=== PATIENT | male | born 1990 | race Caucasian/White ===

== ENCOUNTER 2022-06-26 14:44 | Day surgery (SDC) | payer MEDICAID ==
[2022-06-26] VITALS (10 sets, daily range): BP systolic 99–135; BP diastolic 65–82
[~2022-06-26] VITALS: Ht 175.3 cm; Wt 81.2 kg
[~2022-06-26 14:44] MED LIST: FLUT1BLS13 INH; IPRA4AER INH; OXYC1TAB17 PO; albuterol 2.5 MG/3 ML nebule NEB ONE; ceFAZolin inj. 2,000 MG in dextrose 5%-water 100 ML IV ONE; famotidine 20mg tablet PO ONE; ringers solution, lacted 1,000 ML IV SCH
[2022-06-26] MEDS ORDERED: albuterol 2.5 MG/3 ML nebule NEB ONE ×2 (15:16→18:30)
[2022-06-26] MEDS ORDERED: meperidine/PF 25mg/ml syringe IV PRN ×3 (15:50)
[2022-06-26] MEDS ORDERED: ondansetron/PF 4mg/2ml inj IV PRN (15:50)
[2022-06-26] MEDS ORDERED: ringers solution, lacted 1,000 ML IV SCH (15:50)
[2022-06-26] MEDS ORDERED: morphine 2 MG/ML inj. syringe IV PRN (15:50)
[2022-06-26] MEDS ORDERED: proCHLORperazine 10 MG/2 ml inj IV PRN (15:50)
[2022-06-26] MEDS ORDERED: morphine 4 MG/ML inj SYRINge IV PRN (15:50)
[2022-06-26] MEDS ORDERED: MIDAZolam 1 MG/ML 5ML VIAL ONE (15:53)
[2022-06-26 15:55] LABS: BASOPHILS % (AUTO) 0.7 % (0-1); EOSINOPHILS # (AUTO) 0.5 X10'3 (0-0.9); EOSINOPHILS % (AUTO) 6.3 % (0-6); HEMATOCRIT 39.5 % (42.0-52.0); HEMOGLOBIN 13.5 g/dl (14.0-17.9); LYMPHOCYTES # (AUTO) 1.7 X10'3 (1.1-4.8); LYMPHOCYTES % (AUTO) 23.6 % (21-51); MEAN CORPUSCULAR HEMOGLOBIN 29.8 PG (27.0-31.0); MEAN CORPUSCULAR HGB CONC 34.1 g/dL (33.0-36.5); MEAN CORPUSCULAR VOLUME 87.3 FL (78-98); MEAN PLATELET VOLUME 7.7 FL (7.4-10.4); MONOCYTES # (AUTO) 0.5 X10'3 (0-0.9); MONOCYTES % (AUTO) 7.3 % (2-12); NEUTROPHILS # (AUTO) 4.6 X10'3 (1.8-7.7); NEUTROPHILS % (AUTO) 62.1 % (42-75); PLATELET COUNT 282 X10'3 (140-440); RED BLOOD COUNT 4.52 X10'6 (4.70-6.10); WHITE BLOOD COUNT 7.3 X10'3 (4.5-11.0)
[2022-06-26] MEDS ORDERED: ROPIVAcaine 0.5% (5mg/ml) 30ml vial ONE (15:55)
[2022-06-26] MEDS ORDERED: BUPIVAcaine/PF 7.5mg/ml (0.75%) 10ml vial ONE (15:55)
[2022-06-26 16:03] LABS: ALANINE AMINOTRANSFERASE 22 U/L (12-78); ALBUMIN 3.9 G/DL (3.4-5.0); ALKALINE PHOSPHATASE 125 IU/L (46-116); ANION GAP 9 (8-16); ASPARTATE AMINO TRANSFERASE 18 U/L (10-37); BILIRUBIN,TOTAL 0.5 MG/DL (0.1-1.0); BLOOD UREA NITROGEN 14 MG/DL (7-18); BUN/CREATININE RATIO 18.2 (5.4-32.0); CALCIUM 9.3 MG/DL (8.5-10.1); CHLORIDE 100 MMOL/L (99-107); CREATININE 0.77 MG/DL (0.60-1.10); GLUCOSE 90 MG/DL (70-104); SODIUM 135 MMOL/L (135-145); TOTAL CARBON DIOXIDE 26.5 MMOL/L (24-32); TOTAL PROTEIN 7.9 G/DL (6.4-8.2); eGFR > 90 ML/MIN
[2022-06-26] MEDS ORDERED: vancomycin 1,000mg inj ONE (17:10)
[2022-06-26] MEDS ORDERED: bacitracin 15gm ointment TP ONE (17:38)
[2022-06-26] MEDS ORDERED: VANCOMYCIN 1,500MG in normal saline IV soln 300 ML IV ONE (17:45)
[2022-06-26] MEDS ORDERED: propofol inj 20 ML IV ONE (17:50)
[2022-06-26] MEDS ORDERED: ondansetron/PF 4mg/2ml inj ONE (17:53)
--- NOTE | 2022-06-26 18:08 | NUR ---
Received from OR via , accompanied by Anesthesiologist ANITHA and OR NURSE report given by Anesthesiolgist. PT IS DROWSY AND CONFUSED; VERY ITCHY AND MOVING ABOUT TO RELIEVE ITCHINESS. PT ABLE TO MAINTAIN AIRWAY; DOES NEED MASK AT 10 LPM. DENIES PAIN OR DISCOMFORT. LEELA AND MACARIO INFUSING. Addendum: 06/26/22 at 1845 by Arlette Mike RN Amended: Links added.
--- NOTE | 2022-06-26 19:28 | NUR ---
ALL DISCHARGE CRITERIA HAS BEEN MET. VSS, PAIN AT A TOLERABLE LEVEL, VOIDING AND ABLE TO SAFELY AMBULATE AND TRANSFER SELF. IV TAKEN OUT WITHOUT ANY COMPLICATIONS. ALL DISCHARGE INSTRUCTIONS COVERED WITH PATIENT AND ALL QUESTIONS ANSWERED. PATIENT TAKEN OUT VIA WHEELCHAIR TO PERSONAL VEHICLE WHERE FAMILY/FRIEND DROVE PATIENT HOME. Addendum: 06/26/22 at 1948 by Arlette Mike RN Amended: Links added.
== END 2022-06-26 19:28 | disposition home or self-care (01) ==
LOC: PAS 14:44
PROVIDERS: ATTEND Podiatrist Foot & Ankle Surgery
DX: T84.629A Infection and inflammatory reaction due to internal fixation device of unspecified bone of leg, initial encounter (principal); Y83.8 Other surgical procedures as the cause of abnormal reaction of the patient, or of later complication, without mention of misadventure at the time of the procedure; Z79.899 Other long term (current) drug therapy; G89.18 Other acute postprocedural pain; Z98.890 Other specified postprocedural states
CPT/HCPCS: 10180; 20680; 36415; 64447; 64450; 73620; 76942; 80053; 82948; 85025; 87070; 87075; 87077; 87186; 94640; A6222; C1713; J0690; J2250; J2405; J2704; J2795; J3370; J3490; J7030; J7060; J7120; Z7506; Z7508; Z7512; 76000; A4618; A6253; A6449; A7000

== ENCOUNTER 2022-11-24 09:39 | Inpatient (IN) | payer MEDICAID ==
[~2022-11-24] VITALS: Ht 175.3 cm; Wt 81.8 kg
[~2022-11-24 09:39] MED LIST changes: -albuterol 2.5 MG/3 ML nebule NEB ONE; -ceFAZolin inj. 2,000 MG in dextrose 5%-water 100 ML IV ONE; -famotidine 20mg tablet PO ONE; -ringers solution, lacted 1,000 ML IV SCH
[2022-11-24 11:40] LABS: BASOPHILS % (AUTO) 0.4 % (0-1); EOSINOPHILS # (AUTO) 0.2 X10'3 (0-0.9); EOSINOPHILS % (AUTO) 3.6 % (0-6); HEMATOCRIT 40.9 % (42.0-52.0); HEMOGLOBIN 13.7 g/dl (14.0-17.9); LYMPHOCYTES # (AUTO) 0.9 X10'3 (1.1-4.8); MEAN CORPUSCULAR HEMOGLOBIN 29.5 PG (27.0-31.0); MEAN CORPUSCULAR HGB CONC 33.6 g/dL (33.0-36.5); MEAN CORPUSCULAR VOLUME 87.9 FL (78-98); MEAN PLATELET VOLUME 7.7 FL (7.4-10.4); MONOCYTES # (AUTO) 0.7 X10'3 (0-0.9); MONOCYTES % (AUTO) 11.7 % (2-12); NEUTROPHILS # (AUTO) 4.3 X10'3 (1.8-7.7); NEUTROPHILS % (AUTO) 69.3 % (42-75); PLATELET COUNT 206 X10'3 (140-440); RED BLOOD COUNT 4.65 X10'6 (4.70-6.10); RED CELL DISTRIBUTION WIDTH 14.2 % (11.5-14.5); WHITE BLOOD COUNT 6.2 X10'3 (4.5-11.0)
[2022-11-24 11:57] LABS: ALANINE AMINOTRANSFERASE 60 U/L (12-78); ALBUMIN 3.7 G/DL (3.4-5.0); ALBUMIN/GLOBULIN RATIO 0.8 (1.1-1.5); ALKALINE PHOSPHATASE 108 IU/L (46-116); ANION GAP 6 (8-16); APTT 30 SECONDS (22-32); ASPARTATE AMINO TRANSFERASE 22 U/L (10-37); BILIRUBIN,TOTAL 0.6 MG/DL (0.1-1.0); BLOOD UREA NITROGEN 11 MG/DL (7-18); BUN/CREATININE RATIO 14.7 (10.0-20.0); C-REACTIVE PROTEIN 15.81 MG/DL (0.0-0.5); CALCIUM 9.3 MG/DL (8.5-10.1); CHLORIDE 98 MMOL/L (99-107); CREATININE 0.75 MG/DL (0.60-1.10); GLUCOSE 104 MG/DL (70-104); SODIUM 135 MMOL/L (135-145); TOTAL CARBON DIOXIDE 30.8 MMOL/L (24-32); TOTAL PROTEIN 8.3 G/DL (6.4-8.2); eGFR > 90 ML/MIN
--- NOTE | 2022-11-24 15:49 | NUR ---
Pt states he has been through 4 rounds of abx, just starting on Clindamycin since 11/22/22.
[2022-11-24] MEDS ORDERED: ondansetron/PF 4mg/2ml inj IV ONE (17:15)
[2022-11-24] MEDS ORDERED: morphine 4 MG/ML inj SYRINge IV ONE (17:15)
[2022-11-24] MEDS ORDERED: morphine 4 MG/ML inj SYRINge IM ONE (17:30)
[2022-11-24] MEDS: ondansetron 4mg rapidly disintigrating tab PO ONE ×2 (17:30→18:56)
[2022-11-24] MEDS ORDERED: CefTRIAXone 2gm/D5W 50ml BAG 50 ML IV ONE (17:45)
[2022-11-24] MEDS ORDERED: vancomycin/NS 1 GM ADD-VANTAGE 250 ML IV ONE (17:45)
--- NOTE | 2022-11-24 18:58 | NUR ---
Patient requesting a non-narcotic pain medication, per Efraín ROLLINS give Toradol 15mg IV now
[2022-11-24] MEDS ORDERED: ketorolac trometh. 30mg/ml inj. IV ONE (19:00)
[2022-11-24] MEDS ORDERED: DOCU-342 PO (19:22)
[2022-11-24] MEDS ORDERED: CLIN300C71 PO (19:22)
--- NOTE | 2022-11-24 19:54 | NUR ---
Patient resting comfortably on gurney, antibiotics infusing
--- NOTE | 2022-11-24 20:24 | NUR ---
Patient with Dr. Basilio.
[2022-11-24] MEDS ORDERED: magnesium 4gm in 100ml NS 100 ML IV PRN (20:40)
[2022-11-24] MEDS ORDERED: HYDROcodone/acetaminophen 5mg/325mg tablet PO PRN (20:40)
[2022-11-24] MEDS ORDERED: magnesium hydroxide 30ml (MOM) UD suspension PO PRN (20:40)
[2022-11-24] MEDS ORDERED: ondansetron/PF 4mg/2ml inj IV PRN (20:40)
[2022-11-24] MEDS ORDERED: potassium Cl 20 mEq SR tablet PO PRN ×2 (20:40)
[2022-11-24] MEDS ORDERED: magnesium Cl slow-release 64mg tablet PO PRN (20:40)
[2022-11-24] MEDS ORDERED: potassium Cl 40MEQ/1/2NS 520ml 520 ML IV PRN (20:40)
[2022-11-24] MEDS ORDERED: acetaminophen 325mg tablet PO PRN (20:40)
[2022-11-24] MEDS ORDERED: ipratropium/albuterol 3ml nebule NEB PRN (20:45)
[2022-11-24] MEDS ORDERED: CLINDAMYCIN 600mg IN NS 50ML 50 ML IV SCH ×2 (21:00→21:07)
[2022-11-24] MEDS ORDERED: PER5325T PO (21:12)
[2022-11-24] MEDS ORDERED: MELO-102 PO (21:12)
--- NOTE | 2022-11-24 21:55 | NUR ---
Patient sleeping comfortably
--- NOTE | 2022-11-24 21:55 | NUR ---
Patient with RT.
[2022-11-24] MEDS: budesonide 0.5mg/2ml UD nebule IH SCH (21:59)
[2022-11-24] MEDS ORDERED: linezolid 600mg/300ml PREMIX 300 ML IV SCH (22:00)
[2022-11-24] MEDS: HYDROcodone/acetaminophen 10/325mg tab PO PRN (23:34)
[2022-11-25 01:40] VITALS: BP 118/80
[2022-11-25] MEDS: albuterol 2.5 MG/3 ML nebule NEB SCH ×5 (03:00→23:00)
--- NOTE | 2022-11-25 04:14 | NUR ---
pt does not want the 0300 svn's. takes MDI during waking hours at home
[2022-11-25 06:00] VITALS: BP 105/76
--- NOTE | 2022-11-25 06:20 | NUR ---
Problems reprioritized. Patient report given, questions answered & plan of care reviewed with MARKELL HOOPER.
[2022-11-25 06:38] LABS: BASOPHILS % (AUTO) 0.3 % (0-1); EOSINOPHILS # (AUTO) 0.3 X10'3 (0-0.9); EOSINOPHILS % (AUTO) 7.5 % (0-6); HEMATOCRIT 36.2 % (42.0-52.0); HEMOGLOBIN 12.3 g/dl (14.0-17.9); LYMPHOCYTES # (AUTO) 1.2 X10'3 (1.1-4.8); LYMPHOCYTES % (AUTO) 26.3 % (21-51); MEAN CORPUSCULAR HEMOGLOBIN 29.9 PG (27.0-31.0); MEAN CORPUSCULAR VOLUME 87.8 FL (78-98); MEAN PLATELET VOLUME 7.3 FL (7.4-10.4); MONOCYTES # (AUTO) 0.5 X10'3 (0-0.9); MONOCYTES % (AUTO) 11.6 % (2-12); NEUTROPHILS # (AUTO) 2.5 X10'3 (1.8-7.7); NEUTROPHILS % (AUTO) 54.3 % (42-75); PLATELET COUNT 201 X10'3 (140-440); RED BLOOD COUNT 4.12 X10'6 (4.70-6.10); RED CELL DISTRIBUTION WIDTH 14.1 % (11.5-14.5); WHITE BLOOD COUNT 4.5 X10'3 (4.5-11.0)
--- NOTE | 2022-11-25 07:05 | NUR ---
Problems reprioritized. Patient report given, questions answered & plan of care reviewed with Nicholas GUILLAUME
[2022-11-25] MEDS: budesonide 0.5mg/2ml UD nebule IH SCH ×3 (07:06→22:59)
[2022-11-25 07:16] LABS: ALANINE AMINOTRANSFERASE 44 U/L (12-78); ALBUMIN/GLOBULIN RATIO 0.8 (1.1-1.5); ALKALINE PHOSPHATASE 90 IU/L (46-116); ANION GAP 4 (8-16); ASPARTATE AMINO TRANSFERASE 15 U/L (10-37); BILIRUBIN,TOTAL 0.4 MG/DL (0.1-1.0); BLOOD UREA NITROGEN 15 MG/DL (7-18); BUN/CREATININE RATIO 19.7 (10.0-20.0); CHLORIDE 104 MMOL/L (99-107); CREATININE 0.76 MG/DL (0.60-1.10); GLUCOSE 109 MG/DL (70-104); MAGNESIUM 2.3 MG/DL (1.5-2.4); POTASSIUM 4.3 MMOL/L (3.5-5.1); SODIUM 139 MMOL/L (135-145); TOTAL CARBON DIOXIDE 31.1 MMOL/L (24-32); eGFR > 90 ML/MIN
[2022-11-25] MEDS: docusate sod 100mg capsule PO SCH ×2 (07:44→20:07)
[2022-11-25] MEDS: heparin, porcine 5000 units/ml vial SQ SCH ×2 (07:47→20:08)
[2022-11-25] MEDS: CefTRIAXone 2gm/D5W 50ml BAG 50 ML IV SCH (07:51)
[2022-11-25] MEDS: K and/or MAG REPLACEMENT MC SCH ×2 (07:52→20:00)
[2022-11-25] MEDS ORDERED: vancomycin/NS 1 GM ADD-VANTAGE 250 ML IV SCH (08:00)
[2022-11-25] MEDS: morphine 2 MG/ML inj. syringe IV PRN ×3 (09:38→21:55)
[2022-11-25 10:00] VITALS: BP 125/83
[2022-11-25] MEDS: vancomycin/NS 1 GM ADD-VANTAGE 250 ML IV SCH ×2 (10:05→17:49)
[2022-11-25] MEDS: HYDROcodone/acetaminophen 10/325mg tab PO PRN ×3 (13:44→23:17)
[2022-11-25 18:00] VITALS: BP 138/84
--- NOTE | 2022-11-25 18:17 | NUR ---
Problems reprioritized. Patient report given, questions answered & plan of care reviewed with Nicholas GUILLAUME
[2022-11-25] MEDS: mag hydrox/Alum hydrox/simeth 30ml oral suspension PO PRN (18:51)
[2022-11-25 22:00] VITALS: BP 130/80
[2022-11-26] VITALS (17 sets, daily range): BP systolic 93–156; BP diastolic 65–103
[2022-11-26] MEDS: morphine 2 MG/ML inj. syringe IV PRN ×4 (00:21→21:30)
[2022-11-26] MEDS: vancomycin/NS 1 GM ADD-VANTAGE 250 ML IV SCH ×3 (00:32→18:04)
[2022-11-26] MEDS: albuterol 2.5 MG/3 ML nebule NEB SCH ×4 (02:49→21:04)
[2022-11-26] MEDS: HYDROcodone/acetaminophen 10/325mg tab PO PRN ×5 (03:09→23:56)
--- NOTE | 2022-11-26 06:00 | NUR ---
Problems reprioritized. Patient report given, questions answered & plan of care reviewed with MARKELL Peterson.
--- NOTE | 2022-11-26 06:08 | NUR ---
Problems reprioritized. Patient report given, questions answered & plan of care reviewed with MARKELL HOOPER.
[2022-11-26 06:57] LABS: BASOPHILS % (AUTO) 0.5 % (0-1); EOSINOPHILS # (AUTO) 0.4 X10'3 (0-0.9); EOSINOPHILS % (AUTO) 8.4 % (0-6); HEMATOCRIT 37.2 % (42.0-52.0); HEMOGLOBIN 12.3 g/dl (14.0-17.9); LYMPHOCYTES # (AUTO) 1.3 X10'3 (1.1-4.8); MEAN CORPUSCULAR HEMOGLOBIN 29.5 PG (27.0-31.0); MEAN CORPUSCULAR HGB CONC 33.2 g/dL (33.0-36.5); MEAN CORPUSCULAR VOLUME 88.9 FL (78-98); MEAN PLATELET VOLUME 7.2 FL (7.4-10.4); MONOCYTES # (AUTO) 0.4 X10'3 (0-0.9); MONOCYTES % (AUTO) 9.6 % (2-12); NEUTROPHILS # (AUTO) 2.2 X10'3 (1.8-7.7); NEUTROPHILS % (AUTO) 51.5 % (42-75); PLATELET COUNT 227 X10'3 (140-440); RED BLOOD COUNT 4.19 X10'6 (4.70-6.10); WHITE BLOOD COUNT 4.3 X10'3 (4.5-11.0)
[2022-11-26 07:14] LABS: ALANINE AMINOTRANSFERASE 39 U/L (12-78); ALBUMIN 3.1 G/DL (3.4-5.0); ALBUMIN/GLOBULIN RATIO 0.8 (1.1-1.5); ALKALINE PHOSPHATASE 91 IU/L (46-116); ANION GAP 5 (8-16); ASPARTATE AMINO TRANSFERASE 14 U/L (10-37); BILIRUBIN,TOTAL 0.3 MG/DL (0.1-1.0); BLOOD UREA NITROGEN 13 MG/DL (7-18); BUN/CREATININE RATIO 18.6 (10.0-20.0); CALCIUM 8.8 MG/DL (8.5-10.1); CHLORIDE 103 MMOL/L (99-107); GLUCOSE 104 MG/DL (70-104); MAGNESIUM 2.4 MG/DL (1.5-2.4); POTASSIUM 4.1 MMOL/L (3.5-5.1); SODIUM 137 MMOL/L (135-145); TOTAL PROTEIN 7.2 G/DL (6.4-8.2); eGFR > 90 ML/MIN
[2022-11-26] MEDS: heparin, porcine 5000 units/ml vial SQ SCH ×2 (07:52→19:36)
[2022-11-26] MEDS: docusate sod 100mg capsule PO SCH ×2 (07:52→19:23)
[2022-11-26] MEDS: budesonide 0.5mg/2ml UD nebule IH SCH ×2 (07:53→21:04)
[2022-11-26] MEDS: K and/or MAG REPLACEMENT MC SCH ×2 (08:00→21:15)
[2022-11-26] MEDS: CefTRIAXone 2gm/D5W 50ml BAG 50 ML IV SCH (08:19)
[2022-11-26] MEDS ORDERED: VANCOMYCIN LEVEL IV ONE (08:30)
[2022-11-26] MEDS ORDERED: bacitracin 15gm ointment TP ONE (14:56)
[2022-11-26] MEDS ORDERED: BUPIVAcaine/PF 2.5 mg/ml (0.25%) 30ml vial ONE (14:56)
[2022-11-26] MEDS ORDERED: midazolam 1 mg/ML 2ml injection ONE (15:28)
[2022-11-26] MEDS ORDERED: fentaNYL/PF 50MCG/1 ML 2ML syringe ONE ×2 (15:28→16:11)
[2022-11-26] MEDS ORDERED: ondansetron/PF 4mg/2ml inj IV PRN (15:50)
[2022-11-26] MEDS ORDERED: ringers solution, lacted 1,000 ML IV SCH (15:50)
[2022-11-26] MEDS ORDERED: morphine 2 MG/ML inj. syringe IV PRN (15:50)
[2022-11-26] MEDS ORDERED: meperidine/PF 25mg/ml syringe IV PRN ×2 (15:50)
[2022-11-26] MEDS ORDERED: proCHLORperazine 10 MG/2 ml inj IV PRN (15:50)
[2022-11-26] MEDS ORDERED: dexamethasone sod phosphate 4mg/ml inj. ONE (16:11)
[2022-11-26] MEDS ORDERED: LIDOcaine 2% (20mg/ml) 5ml vial ONE (16:11)
[2022-11-26] MEDS ORDERED: propofol inj 20 ML IV ONE (16:11)
[2022-11-26] MEDS ORDERED: acetaminophen 1,000mg/100ml IV 0 ML IV ONE (16:11)
[2022-11-26] MEDS ORDERED: ondansetron/PF 4mg/2ml inj ONE (16:11)
[2022-11-26] MEDS ORDERED: BUPIVAcaine/PF 2.5 mg/ml (0.25%) 30ml vial IJ ONE (16:15)
[2022-11-26] MEDS ORDERED: vancomycin 1,000mg inj ONE (16:17)
[2022-11-26] MEDS ORDERED: rocuronium 10mg/ml inj IV ONE (16:30)
[2022-11-26] MEDS ORDERED: glycopyrrolate 0.2mg/ml inj ONE (16:34)
[2022-11-26] MEDS ORDERED: neostigmine methylsulfate 1 MG/ML 10ml vial ONE (16:34)
[2022-11-26] MEDS ORDERED: sevoflurane 250ml liquid IH ONE (16:35)
--- NOTE | 2022-11-26 16:49 | NUR ---
Received from OR via BED, accompanied by Anesthesiologist and report given by TAWANDA Anesthesiologist. PATIENT WAKING UP, NO S/S OF PAIN, V/S WNL, SCD ON, 20G TO RIGHT FOREARM, RIGHT ANKLE DRESSING C/D/I. Addendum: 11/26/22 at 1719 by Ron Olivarez RN Amended: Links added.
[2022-11-26] MEDS: meperidine/PF 25mg/ml syringe IV PRN ×3 (17:02→17:35)
[2022-11-26] MEDS: morphine 4 MG/ML inj SYRINge IV PRN ×3 (17:08→17:37)
--- NOTE | 2022-11-26 17:49 | NUR ---
PATIENT HAS MET ALL CRITERIA FOR TRANSFER TO THE SURGICAL FLOOR. VSS. DRESSINGS INTACT. BED LOW, CALL LIGHT PRESENT AND 2 RAILS UP. RN PRESENT TO ACCEPT CARE OF PATIENT AND REPORT HAS BEEN CALLED. ALL QUESTIONS ANSWERED TO ACCEPTING RN. Addendum: 11/26/22 at 1759 by Ron Olivarez RN Amended: Links added.
[2022-11-26] MEDS ORDERED: ketorolac trometh. 30mg/ml inj. IV ONE (18:05)
--- NOTE | 2022-11-26 18:08 | NUR ---
Davy RN orientee Medication Administration: For this medication-pass time frame, all medication were reviewed, dispensed, administered and documented per hospital policy by Vero GUILLAUME.
--- NOTE | 2022-11-26 18:09 | NUR ---
New RN orientee documentation: I have reviewed and agree with all interventions, assessments performed and documented by Vero GUILLAUME .
--- NOTE | 2022-11-26 22:55 | NUR ---
Student documentation: I have reviewed interventions, assessments performed and documented by Glory WILHELM [facility].
[2022-11-27] MEDS: vancomycin/NS 1 GM ADD-VANTAGE 250 ML IV SCH ×3 (01:15→17:08)
[2022-11-27] MEDS: morphine 2 MG/ML inj. syringe IV PRN ×6 (01:24→23:30)
[2022-11-27 02:00] VITALS: BP 129/75
[2022-11-27] MEDS: albuterol 2.5 MG/3 ML nebule NEB SCH ×4 (02:57→21:05)
--- NOTE | 2022-11-27 03:39 | NUR ---
no further drainage on dressing. elevated and iced. pt resting, eyes closed.
[2022-11-27] MEDS: HYDROcodone/acetaminophen 10/325mg tab PO PRN ×4 (05:12→22:12)
--- NOTE | 2022-11-27 05:56 | NUR ---
pt resting. given justin earlier for physical therapy. pt states "I've been to the bathroom about 8 times." encouraged to use urinal. pt noncompliant.
[2022-11-27 06:00] VITALS: BP 110/59
[2022-11-27 06:27] LABS: HEMOGLOBIN 12.4 g/dl (14.0-17.9); WHITE BLOOD COUNT 6.4 X10'3 (4.5-11.0)
[2022-11-27 06:30] LABS: BASOPHILS % (AUTO) 0.2 % (0-1); EOSINOPHILS % (AUTO) 0.1 % (0-6); HEMATOCRIT 36.5 % (42.0-52.0); LYMPHOCYTES # (AUTO) 0.6 X10'3 (1.1-4.8); LYMPHOCYTES % (AUTO) 9.8 % (21-51); MEAN CORPUSCULAR HEMOGLOBIN 29.7 PG (27.0-31.0); MEAN CORPUSCULAR HGB CONC 34.1 g/dL (33.0-36.5); MEAN PLATELET VOLUME 7.2 FL (7.4-10.4); MONOCYTES # (AUTO) 0.5 X10'3 (0-0.9); MONOCYTES % (AUTO) 7.6 % (2-12); NEUTROPHILS # (AUTO) 5.3 X10'3 (1.8-7.7); NEUTROPHILS % (AUTO) 82.3 % (42-75); PLATELET COUNT 275 X10'3 (140-440); RED BLOOD COUNT 4.19 X10'6 (4.70-6.10); RED CELL DISTRIBUTION WIDTH 13.9 % (11.5-14.5)
[2022-11-27 06:40] LABS: ALANINE AMINOTRANSFERASE 42 U/L (12-78); ALBUMIN 3.2 G/DL (3.4-5.0); ALBUMIN/GLOBULIN RATIO 0.8 (1.1-1.5); ALKALINE PHOSPHATASE 100 IU/L (46-116); ANION GAP 6 (8-16); ASPARTATE AMINO TRANSFERASE 14 U/L (10-37); BILIRUBIN,TOTAL 0.4 MG/DL (0.1-1.0); BLOOD UREA NITROGEN 16 MG/DL (7-18); BUN/CREATININE RATIO 19.5 (10.0-20.0); CALCIUM 9.2 MG/DL (8.5-10.1); CHLORIDE 100 MMOL/L (99-107); CREATININE 0.82 MG/DL (0.60-1.10); GLUCOSE 134 MG/DL (70-104); MAGNESIUM 2.5 MG/DL (1.5-2.4); POTASSIUM 4.2 MMOL/L (3.5-5.1); SODIUM 136 MMOL/L (135-145); TOTAL CARBON DIOXIDE 30.5 MMOL/L (24-32); TOTAL PROTEIN 7.4 G/DL (6.4-8.2); eGFR > 90 ML/MIN
[2022-11-27] MEDS: budesonide 0.5mg/2ml UD nebule IH SCH ×2 (07:54→21:05)
[2022-11-27] MEDS: CefTRIAXone 2gm/D5W 50ml BAG 50 ML IV SCH (07:56)
[2022-11-27] MEDS: docusate sod 100mg capsule PO SCH ×2 (07:57→19:32)
[2022-11-27] MEDS: heparin, porcine 5000 units/ml vial SQ SCH ×2 (07:57→19:48)
[2022-11-27] MEDS: K and/or MAG REPLACEMENT MC SCH ×2 (08:00→18:40)
[2022-11-27] MEDS: mag hydrox/Alum hydrox/simeth 30ml oral suspension PO PRN (08:19)
[2022-11-27 10:00] VITALS: BP 155/74
--- NOTE | 2022-11-27 17:32 | NUR ---
After review I agree with the Physical Assessment charted by Vero GUILLAUME with the exception that the patient did cooperate with foot elevation and icing. Addendum: 11/27/22 at 1733 by Ramona Kang RN Amended: Links added.
[2022-11-27 22:00] VITALS: BP 130/83
[2022-11-28] MEDS: vancomycin/NS 1 GM ADD-VANTAGE 250 ML IV SCH ×3 (01:25→16:29)
[2022-11-28] MEDS: HYDROcodone/acetaminophen 10/325mg tab PO PRN (01:36)
[2022-11-28] MEDS: albuterol 2.5 MG/3 ML nebule NEB SCH ×4 (02:30→19:40)
[2022-11-28] MEDS: morphine 2 MG/ML inj. syringe IV PRN ×5 (02:54→22:03)
--- NOTE | 2022-11-28 06:44 | NUR ---
Patient in room ORTHO 4016. I have received report from Wilman GUILLAUME and had the opportunity to ask questions and assume patient care.
[2022-11-28 07:24] LABS: ALANINE AMINOTRANSFERASE 43 U/L (12-78); ALBUMIN 3.4 G/DL (3.4-5.0); ALBUMIN/GLOBULIN RATIO 0.8 (1.1-1.5); ALKALINE PHOSPHATASE 97 IU/L (46-116); ANION GAP 6 (8-16); ASPARTATE AMINO TRANSFERASE 18 U/L (10-37); BILIRUBIN,TOTAL 0.3 MG/DL (0.1-1.0); BLOOD UREA NITROGEN 15 MG/DL (7-18); BUN/CREATININE RATIO 18.5 (10.0-20.0); CALCIUM 8.8 MG/DL (8.5-10.1); CHLORIDE 103 MMOL/L (99-107); CREATININE 0.81 MG/DL (0.60-1.10); GLUCOSE 106 MG/DL (70-104); MAGNESIUM 2.5 MG/DL (1.5-2.4); POTASSIUM 4.3 MMOL/L (3.5-5.1); SODIUM 138 MMOL/L (135-145); TOTAL CARBON DIOXIDE 28.9 MMOL/L (24-32); TOTAL PROTEIN 7.5 G/DL (6.4-8.2); eGFR > 90 ML/MIN
[2022-11-28 07:25] LABS: BASOPHILS % (AUTO) 0.5 % (0-1); EOSINOPHILS # (AUTO) 0.2 X10'3 (0-0.9); EOSINOPHILS % (AUTO) 4.1 % (0-6); HEMATOCRIT 38.4 % (42.0-52.0); HEMOGLOBIN 12.7 g/dl (14.0-17.9); LYMPHOCYTES # (AUTO) 1.8 X10'3 (1.1-4.8); LYMPHOCYTES % (AUTO) 35.5 % (21-51); MEAN CORPUSCULAR HEMOGLOBIN 29.3 PG (27.0-31.0); MEAN CORPUSCULAR HGB CONC 32.9 g/dL (33.0-36.5); MEAN PLATELET VOLUME 7.3 FL (7.4-10.4); MONOCYTES # (AUTO) 0.4 X10'3 (0-0.9); MONOCYTES % (AUTO) 7.9 % (2-12); NEUTROPHILS # (AUTO) 2.7 X10'3 (1.8-7.7); PLATELET COUNT 300 X10'3 (140-440); RED BLOOD COUNT 4.32 X10'6 (4.70-6.10); RED CELL DISTRIBUTION WIDTH 14.1 % (11.5-14.5); WHITE BLOOD COUNT 5.2 X10'3 (4.5-11.0)
[2022-11-28] MEDS: CefTRIAXone 2gm/D5W 50ml BAG 50 ML IV SCH (07:49)
[2022-11-28] MEDS: docusate sod 100mg capsule PO SCH ×2 (07:49→19:59)
[2022-11-28] MEDS: K and/or MAG REPLACEMENT MC SCH ×2 (08:00→19:11)
[2022-11-28] MEDS: heparin, porcine 5000 units/ml vial SQ SCH ×2 (08:00→19:59)
[2022-11-28] MEDS: oxyCODONE/APAP 10/325mg tablet PO PRN ×3 (09:07→19:58)
[2022-11-28] MEDS: budesonide 0.5mg/2ml UD nebule IH SCH ×2 (09:14→19:40)
[2022-11-28 10:00] VITALS: BP 138/74
--- NOTE | 2022-11-28 10:09 | NUR ---
After review I agree with the Physical Assessment charted by Vero GUILLAUME with the following notes: patient was compliant with foot elevation when instructed to do so, the right foot/toes have 1+ trace edema. Addendum: 11/28/22 at 1012 by Ramona Kang RN Amended: Links added.
--- NOTE | 2022-11-28 11:40 | NUR ---
Initial: Pt admit for bone infection to right ankle/foot. Pt currently POD #2 s/p I&D of right ankle. Pt on a regular diet with slightly fluctuating PO intake though overall eating well, documented with average 86% PO intake since admit meeting 100% estimated energy needs and 88% estimated protein needs, though per EMR pt up to 100% PO intake of two most recent meals which will meet 100% estimated energy and protein needs. Noted pt documented with 0% PO intake of breakfast and lunch 4/ however likely pt just NPO at that time for OR. LBM 4/5. Pt receiving routine bowel care and with additional PRN bowel care available. No nutrition intervention implemented at this time. Will continue to follow and make recommendations as appropriate. Recommendations: 1) Continue regular diet 2) Monitor need for ONS/additional protein 3) Routine bowel care 4) Weekly scaled weights Addendum: 11/28/22 at [address] Amended: Links added.
--- NOTE | 2022-11-28 11:58 | NUR ---
Patient had PICC line order from yesterday. Paged PICC nurse yesterday and she stated that she was going to do it today. Today the MD was asking again about the PICC line. Was requested for us to page the PICC nurse again. Paged her again and she called stating that she has several lines that she has to put in today for patients who are being discharged and that our patient was second to last. She asked that we do not page her again that she will get to it sometime today.
[2022-11-28 14:00] VITALS: BP 141/76
--- NOTE | 2022-11-28 17:37 | NUR ---
Asked the patient to make sure that the pain regimen that was prescribed today works. Patient states that this works much better for him and is keeping his pain under control. He is happy with the pain control.
[2022-11-28 18:00] VITALS: BP 124/73
--- NOTE | 2022-11-28 18:23 | NUR ---
Problems reprioritized. Patient report given, questions answered & plan of care reviewed with Lexi GUILLAUME.
[2022-11-28 22:00] VITALS: BP 142/87
[2022-11-29] MEDS: vancomycin/NS 1 GM ADD-VANTAGE 250 ML IV SCH ×3 (00:19→17:04)
[2022-11-29] MEDS: oxyCODONE/APAP 10/325mg tablet PO PRN ×5 (00:20→21:10)
[2022-11-29 02:01] VITALS: BP 104/46
[2022-11-29] MEDS: albuterol 2.5 MG/3 ML nebule NEB SCH ×4 (02:26→21:00)
[2022-11-29] MEDS: morphine 2 MG/ML inj. syringe IV PRN ×5 (03:27→23:36)
[2022-11-29 06:00] VITALS: BP 116/54
[2022-11-29 06:27] LABS: BASOPHILS % (AUTO) 0.8 % (0-1); EOSINOPHILS # (AUTO) 0.3 X10'3 (0-0.9); EOSINOPHILS % (AUTO) 6.2 % (0-6); HEMATOCRIT 37.8 % (42.0-52.0); HEMOGLOBIN 12.5 g/dl (14.0-17.9); LYMPHOCYTES # (AUTO) 1.7 X10'3 (1.1-4.8); MEAN CORPUSCULAR HEMOGLOBIN 29.2 PG (27.0-31.0); MEAN CORPUSCULAR HGB CONC 33.1 g/dL (33.0-36.5); MEAN CORPUSCULAR VOLUME 88.2 FL (78-98); MEAN PLATELET VOLUME 7.1 FL (7.4-10.4); MONOCYTES # (AUTO) 0.5 X10'3 (0-0.9); MONOCYTES % (AUTO) 9.7 % (2-12); NEUTROPHILS # (AUTO) 2.3 X10'3 (1.8-7.7); NEUTROPHILS % (AUTO) 48.3 % (42-75); PLATELET COUNT 298 X10'3 (140-440); RED BLOOD COUNT 4.29 X10'6 (4.70-6.10); RED CELL DISTRIBUTION WIDTH 14.5 % (11.5-14.5); WHITE BLOOD COUNT 4.8 X10'3 (4.5-11.0)
[2022-11-29 06:44] LABS: ALANINE AMINOTRANSFERASE 39 U/L (12-78); ALBUMIN 3.3 G/DL (3.4-5.0); ALBUMIN/GLOBULIN RATIO 0.8 (1.1-1.5); ALKALINE PHOSPHATASE 91 IU/L (46-116); ANION GAP 6 (8-16); ASPARTATE AMINO TRANSFERASE 13 U/L (10-37); BILIRUBIN,TOTAL 0.2 MG/DL (0.1-1.0); BLOOD UREA NITROGEN 17 MG/DL (7-18); BUN/CREATININE RATIO 24.3 (10.0-20.0); CALCIUM 8.9 MG/DL (8.5-10.1); CHLORIDE 102 MMOL/L (99-107); GLUCOSE 104 MG/DL (70-104); POTASSIUM 4.2 MMOL/L (3.5-5.1); SODIUM 138 MMOL/L (135-145); TOTAL CARBON DIOXIDE 29.8 MMOL/L (24-32); TOTAL PROTEIN 7.3 G/DL (6.4-8.2); eGFR > 90 ML/MIN
[2022-11-29] MEDS: budesonide 0.5mg/2ml UD nebule IH SCH ×2 (07:58→20:18)
[2022-11-29] MEDS: CefTRIAXone 2gm/D5W 50ml BAG 50 ML IV SCH (08:00)
[2022-11-29] MEDS: K and/or MAG REPLACEMENT MC SCH ×2 (08:00→18:42)
[2022-11-29] MEDS: docusate sod 100mg capsule PO SCH ×2 (08:04→19:06)
[2022-11-29] MEDS: heparin, porcine 5000 units/ml vial SQ SCH ×2 (08:04→19:06)
[2022-11-29 10:00] VITALS: BP 109/53
[2022-11-29 14:00] VITALS: BP 132/88
[2022-11-29 16:00] VITALS: BP 130/86
[2022-11-29 21:30] VITALS: BP 132/90
[2022-11-30] MEDS: vancomycin/NS 1 GM ADD-VANTAGE 250 ML IV SCH ×3 (01:34→17:02)
[2022-11-30] MEDS: oxyCODONE/APAP 10/325mg tablet PO PRN ×3 (01:34→17:01)
[2022-11-30] MEDS: albuterol 2.5 MG/3 ML nebule NEB SCH ×4 (02:44→20:30)
[2022-11-30] MEDS: morphine 2 MG/ML inj. syringe IV PRN ×3 (03:56→21:17)
--- NOTE | 2022-11-30 04:13 | NUR ---
Patient refused 0200 am vital signs Addendum: 11/30/22 at 0414 by Lexi Neil RN Amended: Links added.
[2022-11-30 04:30] VITALS: BP 114/61
--- NOTE | 2022-11-30 06:05 | NUR ---
received report from epifanio hay
[2022-11-30] MEDS: K and/or MAG REPLACEMENT MC SCH ×2 (07:18→19:31)
[2022-11-30] MEDS: docusate sod 100mg capsule PO SCH ×2 (08:06→19:20)
[2022-11-30] MEDS: heparin, porcine 5000 units/ml vial SQ SCH ×2 (08:07→19:24)
[2022-11-30] MEDS: budesonide 0.5mg/2ml UD nebule IH SCH ×2 (08:23→20:30)
[2022-11-30 11:00] VITALS: BP 135/74
[2022-11-30] MEDS ORDERED: diazepam 5mg tablet PO PRN (11:45)
[2022-11-30] MEDS: mag hydrox/Alum hydrox/simeth 30ml oral suspension PO PRN (17:52)
[2022-11-30 18:00] VITALS: BP 133/73
--- NOTE | 2022-11-30 18:31 | NUR ---
gave report to epifanio pal
[2022-11-30 22:00] VITALS: BP 130/71
[2022-12-01] MEDS: morphine 2 MG/ML inj. syringe IV PRN (00:55)
[2022-12-01] MEDS: vancomycin/NS 1 GM ADD-VANTAGE 250 ML IV SCH ×3 (01:03→18:19)
[2022-12-01 02:00] VITALS: BP 132/71
[2022-12-01] MEDS: albuterol 2.5 MG/3 ML nebule NEB SCH ×4 (03:00→20:52)
[2022-12-01] MEDS: oxyCODONE/APAP 10/325mg tablet PO PRN ×4 (05:03→22:21)
[2022-12-01 06:00] VITALS: BP 129/76
--- NOTE | 2022-12-01 06:29 | NUR ---
Problems reprioritized. Patient report given, questions answered & plan of care reviewed with ALEX GUILLAUME.
--- NOTE | 2022-12-01 06:31 | NUR ---
Patient in room ORTHO 4016. I have received report from MARKELL Burnham and had the opportunity to ask questions and assume patient care.
[2022-12-01] MEDS: K and/or MAG REPLACEMENT MC SCH ×2 (08:00→20:00)
[2022-12-01] MEDS: budesonide 0.5mg/2ml UD nebule IH SCH ×2 (08:05→20:52)
[2022-12-01] MEDS: docusate sod 100mg capsule PO SCH ×2 (08:23→19:49)
[2022-12-01] MEDS: heparin, porcine 5000 units/ml vial SQ SCH ×2 (08:24→19:49)
[2022-12-01 10:00] VITALS: BP 137/79
--- NOTE | 2022-12-01 18:10 | NUR ---
GLUE SPECIALTY SUPERVISOR documentation: I have reviewed and agree with all interventions, assessments performed and documented by Inocencio JAMES II .
--- NOTE | 2022-12-01 18:47 | NUR ---
Problems reprioritized. Patient report given, questions answered & plan of care reviewed with MARKELL Sutherland..
--- NOTE | 2022-12-01 18:58 | NUR ---
Patient in room ORTHO 4016. I have received report from Inocencio JAMES and had the opportunity to ask questions and assume patient care.
[2022-12-01 19:00] VITALS: BP 120/83
[2022-12-01 22:00] VITALS: BP 122/80
[2022-12-02] MEDS: vancomycin/NS 1 GM ADD-VANTAGE 250 ML IV SCH ×2 (00:58→09:37)
[2022-12-02] MEDS: albuterol 2.5 MG/3 ML nebule NEB SCH ×2 (02:18→08:23)
[2022-12-02] MEDS: oxyCODONE/APAP 10/325mg tablet PO PRN ×2 (04:54→11:43)
[2022-12-02 06:00] VITALS: BP 128/69
--- NOTE | 2022-12-02 06:24 | NUR ---
Problems reprioritized. Patient report given, questions answered & plan of care reviewed with Elida JAMES.
--- NOTE | 2022-12-02 06:30 | NUR ---
Patient in room ORTHO 4016. I have received report from MARKELL Sutherland and had the opportunity to ask questions and assume patient care.
[2022-12-02] MEDS: docusate sod 100mg capsule PO SCH (07:58)
[2022-12-02] MEDS: heparin, porcine 5000 units/ml vial SQ SCH (07:58)
[2022-12-02] MEDS: K and/or MAG REPLACEMENT MC SCH (08:00)
[2022-12-02] MEDS: budesonide 0.5mg/2ml UD nebule IH SCH (08:23)
[2022-12-02 10:00] VITALS: BP 137/105
[2022-12-02] MEDS ORDERED: HYDR-3972 PO (10:12)
[2022-12-02] MEDS ORDERED: APIX5TAB3 PO (10:51)
--- NOTE | 2022-12-02 10:53 | NUR ---
Went into patients room to discuss discharge and found patient to be looking through a large bag of medication. Informed charge nurse and went in and took the bag from patient. Bag included 2 different bottles of Percocet, Colace, probiotics, and Clindamycin. MD informed.
--- NOTE | 2022-12-02 10:53 | NUR ---
PAGER ID: [phone] MESSAGE: Rivka Collazo. Found multiple bottles of Percocet in patients room. Please call, Thank you, Elida [phone]
--- NOTE | 2022-12-02 13:05 | NUR ---
Patient stable and appropriate for discharge. Medications e-scipted to [employer] in [place]. Discharge instructions gone over with patient, all questions answered. Patient went with PICC line for IV ABX outpatient. Educated patient to be at [facility] by 1330. Home medications given back to patient at time of discharge. Patient was taken to lobby via wheelchair and left with friend.
[2022-12-02] MEDS ORDERED: VANCOMYCIN LEVEL IV ONE (16:30)
--- NOTE | 2022-12-02 19:21 | NUR ---
Agree with RN IMMUNOLOGY assessment.
== END 2022-12-02 12:50 | disposition home or self-care (01) | DRG 344 ==
LOC: ER 09:39 → ED HOLD 20:38 → ORTHO 4S 11-25 01:02
PROVIDERS: ADMIT Internal Medicine; ATTEND Internal Medicine
PROC: 0QBL0ZX Excision of Right Tarsal, Open Approach, Diagnostic (ICD-10-PCS; 2022-11-26)
PROC: 0Y9K0ZZ Drainage of Right Ankle Region, Open Approach (ICD-10-PCS; principal; 2022-11-26 15:35)
PROC: 02HV33Z Insertion of Infusion Device into Superior Vena Cava, Percutaneous Approach (ICD-10-PCS; 2022-11-28)
PROC: B548ZZA Ultrasonography of Superior Vena Cava, Guidance (ICD-10-PCS; 2022-11-28)
DX: M86.171 Other acute osteomyelitis, right ankle and foot (principal); M00.9 Pyogenic arthritis, unspecified; G47.00 Insomnia, unspecified; L03.115 Cellulitis of right lower limb; M65.871 Other synovitis and tenosynovitis, right ankle and foot; B95.62 Methicillin resistant Staphylococcus aureus infection as the cause of diseases classified elsewhere; J45.909 Unspecified asthma, uncomplicated; Z79.01 Long term (current) use of anticoagulants; Z79.899 Other long term (current) drug therapy
CPT/HCPCS: 36415; 36569; 71045; 73610; 73721; 76942; 80053; 80202; 82948; 83605; 83735; 84145; 85025; 85610; 85651; 85730; 86140; 87040; 87070; 87075; 87077; 87081; 87186; 94640; 94760; 97161; 97530; 99285; A4215; A4615; A4618; A6223; A6253; A6446; A6449; A7000; C1751; G0378; J0131; J0696; J1100; J1644; J1885; J2020; J2175; J2250; J2270; J2405; J2704; J2710; J3010; J3370; J3490; J7040; J7120